=== PATIENT | male | born 1965 | race American Indian/Alaskan Native ===

== ENCOUNTER 2019-04-09 00:07 | Inpatient (IN) | payer SELFPAY ==
[2019-04-09] MEDS ORDERED: levETIRAcetam 1000 MG/NS 0.75% 1,000 MG/100 ML BAG IV ONE (00:25)
--- NOTE | 2019-04-09 00:29 | Emergency Department Report ---
History of Present Illness - General Chief Complaint: Overdose Stated Complaint: SUICIDAL Time Seen by Provider: 04/09/19 00:09 Source: patient, EMS Mode of arrival: Stretcher Limitations: No Limitations - History of Present Illness Initial Comments: 53-year-old male with a past medical history of stage II colon cancer diagnosed 6 months ago, stroke 6 months with residual left sided weakness and left visual deficit, and epilepsy noncompliant on keppra since the hospital with suicidal ideation since being diagnosed with cancer. Patient was found outside of [facility] intoxicated. Patient admitted to drinking 2 beers and about 1.5 cups of antifreeze at 5pm in an attempt to kill himself. He denies daily alcohol intake. Patient states he is suicidal because he has cancer. He has surgical resection of his cancer and has been on IV chemotherapy once a month for the last 3 months and takes a daily oral chemotherapy pill. No physical complaints reported. Patient follows with [facility]. - Related Data Allergies Allergy/AdvReac Type Severity Reaction Status Date / Time No Known Allergies Allergy Unverified 04/09/19 00:36 ED Review of Systems ROS: Stated complaint: SUICIDAL Other details as noted in HPI Comment: All other systems reviewed and negative ED Past Medical Hx - Past Medical History Previous Medical History?: Yes Hx CVA: Yes (summer 2018, left sided weakeness and visual deficit) Hx of Cancer: Yes (Stage II colon cancer diag summer 2018) Hx Seizures: Yes ED Physical Exam - General Limitations: No Limitations - Other Other exam information: General: No limitations, patient is alert in no acute distress Head exam: Atraumatic, normocephalic Eyes exam: Normal appearance ENT: Moist mucous membrane Neck exam: Normal inspection, full range of motion, no meningismus nontender Respiratory exam: Clear to auscultation bilateral, no wheezes, rales, crackles Cardiovascular: Normal rate and rhythm, normal heart sounds Abdomen: Soft, nondistended, and nontender, with normal bowel sounds, no rebound, or guarding Extremity: Full range of motion normal inspection no deformity Back: Normal Inspection, lax left ankle but nontender movement. Neurologic: Alert, oriented x3, speech clear no facial droop 4/5 left-sided weakness and clumsiness of left hand compared to the right. Also 4/5 weakness of the left arm compared to the right. Psychiatric: EtOH on breath, depressed affect Skin: Warm, dry, intact ED Course Vital Signs 04/09/19 04/09/19 04/09/19 00:30 00:41 00:45 Temperature 98.5 F Pulse Rate 86 Respiratory 18 Rate Blood Pressure 123/80 125/80 Blood Pressure 130/75 [Right] O2 Sat by Pulse 94 99 Oximetry 04/09/19 04/09/19 04/09/19 01:00 01:15 01:30 Temperature Pulse Rate 64 109 H 69 Respiratory 11 L 11 L 12 Rate Blood Pressure 117/80 125/82 118/79 Blood Pressure [Right] O2 Sat by Pulse 98 91 96 Oximetry 04/09/19 04/09/19 04/09/19 01:45 02:01 02:15 Temperature Pulse Rate 72 99 H 84 Respiratory 13 15 13 Rate Blood Pressure 124/87 133/91 119/78 Blood Pressure [Right] O2 Sat by Pulse 95 98 100 Oximetry 04/09/19 04/09/19 04/09/19 02:30 02:45 03:00 Temperature Pulse Rate 68 72 66 Respiratory 13 10 L 14 Rate Blood Pressure 115/73 125/77 121/79 Blood Pressure [Right] O2 Sat by Pulse 99 98 98 Oximetry 04/09/19 04/09/19 04/09/19 03:15 03:30 03:45 Temperature Pulse Rate 66 63 75 Respiratory 12 11 L 10 L Rate Blood Pressure 124/81 114/79 116/83 Blood Pressure [Right] O2 Sat by Pulse 100 98 100 Oximetry - Consultations Consultation #1: 04/09/19 00:35 case d/w Poison control. Recommended for Fomepizole 15mg/kg bolus followed by 10 mg/kg IV q 12 hours while ethelyne glycol level pending. -serum osm -ua for crystals -daily thiamine 100mg and pyrdoxine 100mg -r/o co ingestions -ekg 04/09/19 02:39 case rediscussed with Poison control at 2:35am Pt has an 86.7 Osm Gap no calcium oxalate stop Fomepizol when ethylene glycol level is < 20 mg/dl sx with ethylene glycol: somnolence ataxia renal failure hypototonic muscle kussmal's respiration hypocalcemia rec repeat cmp and osmol in 4 hours ED Medical Decision Making - Lab Data Result diagrams: 04/09/19 00:28 04/09/19 00:28 Lab Results 04/09/19 04/09/19 04/09/19 Range/Units 00:28 00:28 00:28 WBC 5.1 (4.5-11.0) K/mm3 RBC 4.85 (3.65-5.03) M/mm3 Hgb 11.3 L (11.8-15.2) gm/dl Hct 34.9 L (35.5-45.6) % MCV 72 L (84-94) fl MCH 23 L (28-32) pg MCHC 32 (32-34) % RDW 25.0 H (13.2-15.2) % Plt Count 448 H (140-440) K/mm3 Lymph % (Auto) 16.2 (13.4-35.0) % Kemper % (Auto) 1.2 (0.0-7.3) % Eos % (Auto) 0.1 (0.0-4.3) % Baso % (Auto) 0.6 (0.0-1.8) % Lymph # 0.8 L (1.2-5.4) K/mm3 Kemper # 0.1 (0.0-0.8) K/mm3 Eos # 0.0 (0.0-0.4) K/mm3 Baso # 0.0 (0.0-0.1) K/mm3 Seg Neutrophils % 81.9 H (40.0-70.0) % Seg Neutrophils # 4.2 (1.8-7.7) K/mm3 Sodium 147 H (137-145) mmol/L Potassium 5.0 (3.6-5.0) mmol/L Chloride 106.6 (98-107) mmol/L Carbon Dioxide 21 L (22-30) mmol/L Anion Gap 24 mmol/L BUN 8 L (9-20) mg/dL Creatinine 0.8 (0.8-1.5) mg/dL Estimated GFR > 60 ml/min BUN/Creatinine Ratio 10 % Glucose 113 H (75-100) mg/dL Osmolality 425 Mosm/kg Calcium 9.3 (8.4-10.2) mg/dL Magnesium (1.7-2.3) mg/dL Total Bilirubin 0.30 (0.1-1.2) mg/dL AST 18 (5-40) units/L ALT 8 (7-56) units/L Alkaline Phosphatase 52 (35-129) units/L Total Protein 7.9 (6.3-8.2) g/dL Albumin 4.5 (3.9-5) g/dL Albumin/Globulin Ratio 1.3 % Urine Color (Yellow) Urine Turbidity (Clear) Urine pH (5.0-7.0) Ur Specific [place] (1.003-1.030) Urine Protein (Negative) mg/dL Urine Glucose (UA) (Negative) mg/dL Urine Ketones (Negative) mg/dL Urine Blood (Negative) Urine Nitrite (Negative) Urine Bilirubin (Negative) Urine Urobilinogen (<2.0) mg/dL Ur Leukocyte Esterase (Negative) Urine WBC (Auto) (0.0-6.0) /HPF Urine RBC (Auto) (0.0-6.0) /HPF U Epithel Cells (Auto) (0-13.0) /HPF Salicylates (2.8-20.0) mg/dL Urine Opiates Screen Urine Methadone Screen Acetaminophen (10.0-30.0) ug/mL Ur Barbiturates Screen Ur Phencyclidine Scrn Ur Amphetamines Screen U Benzodiazepines Scrn Urine Cocaine Screen U Marijuana (THC) Screen Drugs of Abuse Note Plasma/Serum Alcohol (0-0.07) % 04/09/19 04/09/19 04/09/19 Range/Units 00:28 00:28 00:28 WBC (4.5-11.0) K/mm3 RBC (3.65-5.03) M/mm3 Hgb (11.8-15.2) gm/dl Hct (35.5-45.6) % MCV (84-94) fl MCH (28-32) pg MCHC (32-34) % RDW (13.2-15.2) % Plt Count (140-440) K/mm3 Lymph % (Auto) (13.4-35.0) % Kemper % (Auto) (0.0-7.3) % Eos % (Auto) (0.0-4.3) % Baso % (Auto) (0.0-1.8) % Lymph # (1.2-5.4) K/mm3 Kemper # (0.0-0.8) K/mm3 Eos # (0.0-0.4) K/mm3 Baso # (0.0-0.1) K/mm3 Seg Neutrophils % (40.0-70.0) % Seg Neutrophils # (1.8-7.7) K/mm3 Sodium (137-145) mmol/L Potassium (3.6-5.0) mmol/L Chloride (98-107) mmol/L Carbon Dioxide (22-30) mmol/L Anion Gap mmol/L BUN (9-20) mg/dL Creatinine (0.8-1.5) mg/dL Estimated GFR ml/min BUN/Creatinine Ratio % Glucose (75-100) mg/dL Osmolality Mosm/kg Calcium (8.4-10.2) mg/dL Magnesium 2.50 H (1.7-2.3) mg/dL Total Bilirubin (0.1-1.2) mg/dL AST (5-40) units/L ALT (7-56) units/L Alkaline Phosphatase (35-129) units/L Total Protein (6.3-8.2) g/dL Albumin (3.9-5) g/dL Albumin/Globulin Ratio % Urine Color (Yellow) Urine Turbidity (Clear) Urine pH (5.0-7.0) Ur Specific Ul[place] (1.003-1.030) Urine Protein (Negative) mg/dL Urine Glucose (UA) (Negative) mg/dL Urine Ketones (Negative) mg/dL Urine Blood (Negative) Urine Nitrite (Negative) Urine Bilirubin (Negative) Urine Urobilinogen (<2.0) mg/dL Ur Leukocyte Esterase (Negative) Urine WBC (Auto) (0.0-6.0) /HPF Urine RBC (Auto) (0.0-6.0) /HPF U Epithel Cells (Auto) (0-13.0) /HPF Salicylates 0.4 L (2.8-20.0) mg/dL Urine Opiates Screen Urine Methadone Screen Acetaminophen (10.0-30.0) ug/mL Ur Barbiturates Screen Ur Phencyclidine Scrn Ur Amphetamines Screen U Benzodiazepines Scrn Urine Cocaine Screen U Marijuana (THC) Screen Drugs of Abuse Note Plasma/Serum Alcohol 0.13 H (0-0.07) % 04/09/19 04/09/19 04/09/19 Range/Units 00:28 00:30 00:30 WBC (4.5-11.0) K/mm3 RBC (3.65-5.03) M/mm3 Hgb (11.8-15.2) gm/dl Hct (35.5-45.6) % MCV (84-94) fl MCH (28-32) pg MCHC (32-34) % RDW (13.2-15.2) % Plt Count (140-440) K/mm3 Lymph % (Auto) (13.4-35.0) % Kemper % (Auto) (0.0-7.3) % Eos % (Auto) (0.0-4.3) % Baso % (Auto) (0.0-1.8) % Lymph # (1.2-5.4) K/mm3 Kemper # (0.0-0.8) K/mm3 Eos # (0.0-0.4) K/mm3 Baso # (0.0-0.1) K/mm3 Seg Neutrophils % (40.0-70.0) % Seg Neutrophils # (1.8-7.7) K/mm3 Sodium (137-145) mmol/L Potassium (3.6-5.0) mmol/L Chloride (98-107) mmol/L Carbon Dioxide (22-30) mmol/L Anion Gap mmol/L BUN (9-20) mg/dL Creatinine (0.8-1.5) mg/dL Estimated GFR ml/min BUN/Creatinine Ratio % Glucose (75-100) mg/dL Osmolality Mosm/kg Calcium (8.4-10.2) mg/dL Magnesium (1.7-2.3) mg/dL Total Bilirubin (0.1-1.2) mg/dL AST (5-40) units/L ALT (7-56) units/L Alkaline Phosphatase (35-129) units/L Total Protein (6.3-8.2) g/dL Albumin (3.9-5) g/dL Albumin/Globulin Ratio % Urine Color Colorless (Yellow) Urine Turbidity Clear (Clear) Urine pH 5.0 (5.0-7.0) Ur Specific [place] 1.010 (1.003-1.030) Urine Protein <15 mg/dl (Negative) mg/dL Urine Glucose (UA) Neg (Negative) mg/dL Urine Ketones Tr (Negative) mg/dL Urine Blood Neg (Negative) Urine Nitrite Neg (Negative) Urine Bilirubin Neg (Negative) Urine Urobilinogen < 2.0 (<2.0) mg/dL Ur Leukocyte Esterase Neg (Negative) Urine WBC (Auto) < 1.0 (0.0-6.0) /HPF Urine RBC (Auto) 2.0 (0.0-6.0) /HPF U Epithel Cells (Auto) < 1.0 (0-13.0) /HPF Salicylates (2.8-20.0) mg/dL Urine Opiates Screen Presumptive negative Urine Methadone Screen Presumptive negative Acetaminophen < 5.0 L (10.0-30.0) ug/mL Ur Barbiturates Screen Presumptive negative Ur Phencyclidine Scrn Presumptive negative Ur Amphetamines Screen Presumptive negative U Benzodiazepines Scrn Presumptive negative Urine Cocaine Screen Presumptive negative U Marijuana (THC) Screen Presumptive negative Drugs of Abuse Note Disclamer Plasma/Serum Alcohol (0-0.07) % - EKG Data -: EKG Interpreted by Me EKG shows normal: sinus rhythm, axis (qrsd ), intervals (qtc 462), ST-T waves (no stemi) Rate: normal (89) - Medical Decision Making + suicide attempt drank etoh and antifreeze + osm gap, requiring Fomepizole pt requires admission for treatment, 1013 signed - Differential Diagnosis overdose, SI Critical Care Time: No Critical care attestation.: If time is entered above; I have spent that time in minutes in the direct care of this critically ill patient, excluding procedure time. ED Disposition Clinical Impression: Suicide attempt, Alcohol intoxication, Poisoning, antifreeze, Colon cancer, History of CVA with residual deficit Disposition: DC-09 OP ADMIT IP TO THIS HOSP Is pt being admited?: Yes Condition: Stable Time of Disposition: 02:54 (Dr Fernandez/hosp)
[2019-04-09] MEDS ORDERED: PYRIDOXINE 50 MG TAB PO ONE (00:44)
[2019-04-09 00:49] LABS: Bilirubin,Urine NEG (Negative); Blood,Urine NEG (Negative); Color,Urine Colorless (Yellow); Protein,Urine <15 mg/dL mg/dL (Negative); Urobilinogen,Urine < 2.0 mg/dL (<2.0)
[2019-04-09 00:53] LABS: Basophils % (Auto) 0.6 % (0.0-1.8); Eosinophils % (Auto) 0.1 % (0.0-4.3); Hematocrit 34.9 % (35.5-45.6); Hemoglobin 11.3 gm/dl (11.8-15.2); Lymphocytes # (Auto) 0.8 K/mm3 (1.2-5.4); Lymphocytes % (Auto) 16.2 % (13.4-35.0); Mean Corpuscular HGB Conc 32 % (32-34); Mean Corpuscular Volume 72 fl (84-94); Monocytes # (Auto) 0.1 K/mm3 (0.0-0.8); Monocytes % (Auto) 1.2 % (0.0-7.3); Platelet Count 448 K/mm3 (140-440); Red Blood Count 4.85 M/mm3 (3.65-5.03)
[2019-04-09] MEDS ORDERED: THIAMINE 100 MG, FOLIC ACID 1 MG, MULTIPLE VITAMIN INJ, ADULT 10 ML in SODIUM CHLORIDE ... IV ONE (01:00)
[2019-04-09 01:09] LABS: Alanine Aminotransferase 8 units/L (7-56); Albumin 4.5 g/dL (3.9-5); BUN/Creatinine Ratio 10; Blood Urea Nitrogen 8 mg/dL (9-20); Calcium 9.3 mg/dL (8.4-10.2); Hemolysis Index 4
[2019-04-09 01:10] LABS: WBC,Urine < 1.0 /HPF (0.0-6.0)
[2019-04-09 01:38] LABS: Amphetamine Screen,Urine PRESUMPTIVE NEGATIVE; Benzodiazepines Screen,Urine PRESUMPTIVE NEGATIVE; Cannabinoid Screen,Urine PRESUMPTIVE NEGATIVE; Cocaine Screen,Urine PRESUMPTIVE NEGATIVE; Methadone Screen,Urine PRESUMPTIVE NEGATIVE; Opiate Screen,Urine PRESUMPTIVE NEGATIVE
[2019-04-09] MEDS: FOMEPIZOLEV IV ONE ×2 (01:42→05:29)
[2019-04-09] MEDS: SODIUM CHLORIDE 0.9% IV ONE ×2 (01:42→05:29)
[2019-04-09] MEDS ORDERED: MAGNESIUM HYDROXIDE (MOM) ORAL LIQD UDC PO PRN (03:04)
[2019-04-09] MEDS ORDERED: ONDANSETRON 4 MG/2 ML INJ IV PRN (03:04)
--- NOTE | 2019-04-09 03:48 | History and Physical Report ---
History of Present Illness Date of examination: 04/09/19 Date of admission: 04/09/2019 Chief complaint: Drug overdose History of present illness: 53-year-old -[place] male with known history of stage II colon cancer on chemotherapy presenting to the emergency room today with suicide attempts. Patient was said to have taken alcohol and antifreeze in an attempt to commit suicide. He is said to have been having suicidal ideation since he was diagnosed with colon cancer. He took about 2 beers and 1-1/2 cups of antifreeze. He also has known history of CVA with left-sided deficit, seizure disorder on keppra but has been noncompliant since diagnosis of colon ca. He has been on chemotherapy pills once a month for the past 3 months for his colon cancer. Upon evaluation in the emergency room, Poison control was contacted and recommendations were given for patient's management-Recommended for Fomepizole 15mg/kg bolus followed by 10 mg/kg IV q 12 hours while ethelyne glycol level pending. serum osmolality , urinalysis for crystals Repeat chemistry is to be done in 4 hours. Patient is also to receive daily thiamine and pyridoxine. Past History Past Medical History: stroke, other (History of colon ca.) Past Surgical History: bowel surgery Social history: no significant social history Family history: no significant family history Medications and Allergies Allergies Allergy/AdvReac Type Severity Reaction Status Date / Time No Known Allergies Allergy Unverified 04/09/19 00:36 Active Meds: Active Medications Thiamine HCl 100 mg/ Folic Acid 1 mg/ Multivitamins/Minerals 10 ml/ Sodium Chloride 1,011.2 mls @ 250 mls/hr IV ONCE ONE Stop: 04/09/19 05:02 Last Admin: 04/09/19 01:04 Dose: 250 mls/hr Documented by: Fomepizole 730 mg/ Sodium (Chloride) 100.73 mls @ 200 mls/hr IV Q12HR MARILEE Stop: 04/10/19 22:31 Sodium Chloride (Nacl 0.9% 1000 Ml) 1,000 mls @ 75 mls/hr IV DIRECT MARILEE Magnesium Hydroxide (Milk Of Magnesia) 30 ml PO Q4H PRN PRN Reason: Constipation Ondansetron HCl (Zofran) 4 mg IV Q8H PRN PRN Reason: Nausea And Vomiting Pyridoxine HCl (Vitamin B-6) 100 mg PO QDAY MARILEE Sodium Chloride (Sodium Chloride Flush Syringe 10 Ml) 10 ml IV BID MARILEE Sodium Chloride (Sodium Chloride Flush Syringe 10 Ml) 10 ml IV PRN PRN PRN Reason: LINE FLUSH Thiamine HCl (Vitamin B-1) 100 mg PO DAILY [facility] Review of Systems Psychiatric: suicidal ideation, depression Exam - Constitutional Vitals: Temp Pulse Resp BP Pulse Ox 98.5 F 64 11 L 117/80 98 04/09/19 00:30 04/09/19 01:00 04/09/19 01:00 04/09/19 01:00 04/09/19 01:00 General appearance: Present: no acute distress, well-nourished - EENT Eyes: Present: PERRL, EOM intact ENT: hearing intact, clear oral mucosa, dentition normal - Neck Neck: Present: supple, normal ROM - Respiratory Respiratory effort: normal Respiratory: bilateral: CTA - Cardiovascular Rhythm: regular Heart Sounds: Present: S1 & S2 - Extremities Extremities: no ischemia, pulses intact, pulses symmetrical, No edema, Full ROM Peripheral Pulses: within normal limits - Abdominal General gastrointestinal: Present: soft, non-tender, non-distended - Integumentary Integumentary: Present: clear, warm, dry - Musculoskeletal Musculoskeletal: strength equal bilaterally - Psychiatric Psychiatric: appropriate mood/affect, intact judgment & insight, cooperative - Neurologic Neurologic: CNII-XII intact, moves all extremities Results - Labs CBC & Chem 7: 04/09/19 00:28 04/09/19 00:28 Labs: Abnormal lab results 04/09/19 04/09/19 04/09/19 Range/Units 00:28 00:28 00:28 Hgb 11.3 L (11.8-15.2) gm/dl Hct 34.9 L (35.5-45.6) % MCV 72 L (84-94) fl MCH 23 L (28-32) pg RDW 25.0 H (13.2-15.2) % Plt Count 448 H (140-440) K/mm3 Lymph # 0.8 L (1.2-5.4) K/mm3 Seg Neutrophils % 81.9 H (40.0-70.0) % Sodium 147 H (137-145) mmol/L Carbon Dioxide 21 L (22-30) mmol/L BUN 8 L (9-20) mg/dL Glucose 113 H (75-100) mg/dL Magnesium (1.7-2.3) mg/dL Salicylates (2.8-20.0) mg/dL Acetaminophen (10.0-30.0) ug/mL Plasma/Serum Alcohol 0.13 H (0-0.07) % 04/09/19 04/09/19 04/09/19 Range/Units 00:28 00:28 00:28 Hgb (11.8-15.2) gm/dl Hct (35.5-45.6) % MCV (84-94) fl MCH (28-32) pg RDW (13.2-15.2) % Plt Count (140-440) K/mm3 Lymph # (1.2-5.4) K/mm3 Seg Neutrophils % (40.0-70.0) % Sodium (137-145) mmol/L Carbon Dioxide (22-30) mmol/L BUN (9-20) mg/dL Glucose (75-100) mg/dL Magnesium 2.50 H (1.7-2.3) mg/dL Salicylates 0.4 L (2.8-20.0) mg/dL Acetaminophen < 5.0 L (10.0-30.0) ug/mL Plasma/Serum Alcohol (0-0.07) % Assessment and Plan - Patient Problems (1) Suicide attempt Current Visit: Yes Status: Acute Plan to address problem: Patient will be closely monitored. Will place on suicide precautions. (2) Alcohol intoxication Current Visit: Yes Status: Acute Plan to address problem: Possibly in an attempt to commit suicide. Patient was said to have ingested alcohol and antifreeze. (3) Colon cancer Current Visit: Yes Status: Acute Plan to address problem: Patient has been on chemotherapy. He has also had abdominal surgery. He follows up at [facility]. (4) History of CVA with residual deficit Current Visit: Yes Status: Acute Plan to address problem: Stable. (5) History of seizure disorder Current Visit: Yes Status: Acute Plan to address problem: We will continue routine home medications. We will also place on seizure precautions. (6) DVT prophylaxis Current Visit: Yes Status: Acute (7) Full code status Current Visit: Yes Status: Acute
--- NOTE | 2019-04-09 05:42 | XRay Report ---
EXAMINATION: Left ankle radiograph, 3 views, 04/09/2019 CLINICAL INFORMATION: Left ankle pain COMPARISON: None. FINDINGS: There is widening of the tibiotalar joint with slight anterior displacement of the distal t ibia suggestive of tibiotalar dislocation. There is a minimally displaced oblique fracture of the dis sahara tibial metaphysis. Generalized soft tissue swelling is noted. Signer Name: Sharita Rodriguez MD Signed: 04/09/2019 5:37 AM Workstation Name: [id number]
[2019-04-09] MEDS: HEPARIN 5,000 UNIT/1 ML VIAL SUB-Q SCH ×3 (06:53→22:21)
[2019-04-09 08:05] LABS: Alanine Aminotransferase 10 units/L (7-56); Albumin 4.6 g/dL (3.9-5); BUN/Creatinine Ratio 8; Blood Urea Nitrogen 7 mg/dL (9-20); Calcium 9.5 mg/dL (8.4-10.2); Hemolysis Index 0
[2019-04-09] MEDS: SODIUM CHLORIDE 0.9% IV SCH (09:44)
[2019-04-09] MEDS: FOMEPIZOLEV IV SCH (09:44)
[2019-04-09] MEDS ORDERED: THIAMINE 100 MG TAB ONE (09:52)
[2019-04-09] MEDS: THIAMINE 100 MG TAB PO SCH (09:53)
[2019-04-09] MEDS: PYRIDOXINE 50 MG TAB PO SCH (09:54)
[2019-04-09] MEDS ORDERED: FOMEPIZOLE 1500 MG/1.5 ML IV ONE (10:00)
[2019-04-09] MEDS ORDERED: SODIUM CHLORIDE 0.9% 100 ML IVPB ONE (10:00)
[2019-04-09] MEDS: SODIUM CHLORIDE 0.9% 1000 ML 1,000 ML IV SCH (10:23)
[2019-04-09] MEDS ORDERED: SODIUM CHLORIDE 0.9% 1000 ML 1,000 ML ONE ×2 (10:27)
[2019-04-09] MEDS ORDERED: HEPARIN 5,000 UNIT/1 ML VIAL ONE ×3 (16:31→22:16)
[2019-04-09] MEDS ORDERED: oxyCODONE /ACETAMINOPHEN 5-325MG TAB ONE (17:35)
[2019-04-09] MEDS: oxyCODONE /ACETAMINOPHEN 5-325MG TAB PO PRN (17:55)
[2019-04-09] MEDS ORDERED: MORPHINE 2 MG/1 ML INJ IV ONE (22:09)
[2019-04-09] MEDS ORDERED: MORPHINE 2 MG/1 ML INJ ONE (22:16)
[2019-04-10] MEDS: oxyCODONE /ACETAMINOPHEN 5-325MG TAB PO PRN ×3 (01:11→20:22)
[2019-04-10] MEDS: SODIUM CHLORIDE 0.9% IV SCH ×3 (01:15→22:31)
[2019-04-10] MEDS: FOMEPIZOLEV IV SCH ×3 (01:15→22:31)
[2019-04-10] MEDS: SODIUM CHLORIDE 0.9% 1000 ML 1,000 ML IV SCH ×2 (02:40→17:13)
[2019-04-10 04:12] LABS: Basophils # (Auto) 0.1 K/mm3 (0.0-0.1); Basophils % (Auto) 0.7 % (0.0-1.8); Eosinophils # (Auto) 0.2 K/mm3 (0.0-0.4); Eosinophils % (Auto) 1.9 % (0.0-4.3); Hematocrit 27.9 % (35.5-45.6); Hemoglobin 9.2 gm/dl (11.8-15.2); Lymphocytes # (Auto) 1.6 K/mm3 (1.2-5.4); Lymphocytes % (Auto) 19.2 % (13.4-35.0); Mean Corpuscular HGB Conc 33 % (32-34); Mean Corpuscular Volume 72 fl (84-94); Monocytes # (Auto) 0.7 K/mm3 (0.0-0.8); Monocytes % (Auto) 7.9 % (0.0-7.3); Platelet Count 362 K/mm3 (140-440); Red Blood Count 3.88 M/mm3 (3.65-5.03)
[2019-04-10 04:16] LABS: INR 1.08 (0.87-1.13); Partial Thromboplastin Time 27.9 Sec. (24.2-36.6)
[2019-04-10 04:21] LABS: BUN/Creatinine Ratio 13; Blood Urea Nitrogen 12 mg/dL (9-20); Calcium 8.4 mg/dL (8.4-10.2); Hemolysis Index 1
[2019-04-10] MEDS: HEPARIN 5,000 UNIT/1 ML VIAL SUB-Q SCH ×3 (05:31→21:16)
[2019-04-10] MEDS: THIAMINE 100 MG TAB PO SCH (10:19)
[2019-04-10] MEDS: PYRIDOXINE 50 MG TAB PO SCH (10:19)
--- NOTE | 2019-04-10 17:37 | Progress Note ---
Assessment and Plan - Patient Problems (1) Poisoning, antifreeze Current Visit: Yes Status: Acute Qualifiers: Injury intent: intentional self-harm Plan to address problem: Can continue IV Fomipazole, vitamin B1, vitamin B6 as per poison control recommendations (2) Alcohol intoxication Current Visit: Yes Status: Acute Qualifiers: Complication of substance-induced condition: uncomplicated Qualified Code(s): F10.920 - Alcohol use, unspecified with intoxication, uncomplicated Plan to address problem: Alcohol cessation, thiamine, folic acid, multivitamin. Outpatient AA follow-up. Supportive care, behavior change counseling +15 minutes (3) Colon cancer Current Visit: Yes Status: Acute Qualifiers: Colon location: unspecified part of colon Qualified Code(s): C18.9 - Malignant neoplasm of colon, unspecified Plan to address problem: Supportive care, outpatient oncology follow-up, continue current therapy. (4) History of CVA with residual deficit Current Visit: Yes Status: Acute Plan to address problem: Supportive care (5) Suicide attempt Current Visit: Yes Status: Acute Plan to address problem: Psychiatry consulted consent to new current care, [address] (6) DVT prophylaxis Current Visit: Yes Status: Acute Plan to address problem: SCD to bilateral lower extremities while in bed, prophylactic heparin. History Interval history: 53-year-old male hospital day 2 with alcohol intoxication, suicide attempt via ingestion of ethylene glycol, colon cancer, left ankle fracture. Patient is more alert today. Patient resting comfortably in bed. Patient denies fever, chills, chest pain, palpitations, nausea vomiting diarrhea, productive cough, skin rash, recent ill contacts. No reported nursing events overnight. Patient complains of left ankle pain. Orthopedic surgery service consulted. Hospitalist Physical - Constitutional Vitals: Temp Pulse Resp BP Pulse Ox 98.5 F 72 12 127/83 97 04/10/19 08:00 04/10/19 09:21 04/10/19 09:21 04/10/19 09:21 04/10/19 09:21 General appearance: Present: no acute distress, well-nourished - EENT Eyes: Present: PERRL ENT: hearing intact - Neck Neck: Present: supple - Respiratory Respiratory: bilateral: CTA - Cardiovascular Rhythm: regular Heart Sounds: Present: S1 & S2 - Extremities Extremities: no ischemia Extremity abnormal: edema Peripheral Pulses: within normal limits - Abdominal General gastrointestinal: soft, non-tender, non-distended - Integumentary Integumentary: Present: clear, warm, dry - Psychiatric Psychiatric: appropriate mood/affect, cooperative - Neurologic Neurologic: CNII-XII intact Results - Labs CBC & Chem 7: 04/10/19 03:36 04/10/19 03:36 Labs: Laboratory Last Values WBC 8.3 K/mm3 (4.5-11.0) 04/10/19 03:36 RBC 3.88 M/mm3 (3.65-5.03) 04/10/19 03:36 Hgb 9.2 gm/dl (11.8-15.2) L 04/10/19 03:36 Hct 27.9 % (35.5-45.6) L D 04/10/19 03:36 MCV 72 fl (84-94) L 04/10/19 03:36 MCH 24 pg (28-32) L 04/10/19 03:36 MCHC 33 % (32-34) 04/10/19 03:36 RDW 24.0 % (13.2-15.2) H 04/10/19 03:36 Plt Count 362 K/mm3 (140-440) 04/10/19 03:36 Lymph % (Auto) 19.2 % (13.4-35.0) 04/10/19 03:36 [place] % (Auto) 7.9 % (0.0-7.3) H 04/10/19 03:36 Eos % (Auto) 1.9 % (0.0-4.3) 04/10/19 03:36 Baso % (Auto) 0.7 % (0.0-1.8) 04/10/19 03:36 Lymph # 1.6 K/mm3 (1.2-5.4) 04/10/19 03:36 [place] # 0.7 K/mm3 (0.0-0.8) 04/10/19 03:36 Eos # 0.2 K/mm3 (0.0-0.4) 04/10/19 03:36 Baso # 0.1 K/mm3 (0.0-0.1) 04/10/19 03:36 Seg Neutrophils % 70.3 % (40.0-70.0) H 04/10/19 03:36 Seg Neutrophils # 5.8 K/mm3 (1.8-7.7) 04/10/19 03:36 PT 14.1 Sec. (12.2-14.9) 04/10/19 03:36 INR 1.08 (0.87-1.13) 04/10/19 03:36 APTT 27.9 Sec. (24.2-36.6) 04/10/19 03:36 Sodium 145 mmol/L (137-145) 04/10/19 03:36 Potassium 3.7 mmol/L (3.6-5.0) 04/10/19 03:36 Chloride 110.0 mmol/L (98-107) H 04/10/19 03:36 Carbon Dioxide 21 mmol/L (22-30) L 04/10/19 03:36 Anion Gap 18 mmol/L 04/10/19 03:36 BUN 12 mg/dL (9-20) 04/10/19 03:36 Creatinine 0.9 mg/dL (0.8-1.5) 04/10/19 03:36 Estimated GFR > 60 ml/min 04/10/19 03:36 BUN/Creatinine Ratio 13 % 04/10/19 03:36 Glucose 91 mg/dL (75-100) 04/10/19 03:36 Osmolality 389 Mosm/kg 04/09/19 07:09 Calcium 8.4 mg/dL (8.4-10.2) 04/10/19 03:36 Magnesium 2.50 mg/dL (1.7-2.3) H 04/09/19 00:28 Total Bilirubin 0.30 mg/dL (0.1-1.2) 04/09/19 07:09 AST 17 units/L (5-40) 04/09/19 07:09 ALT 10 units/L (7-56) 04/09/19 07:09 Alkaline Phosphatase 53 units/L (35-129) 04/09/19 07:09 Total Protein 8.4 g/dL (6.3-8.2) H 04/09/19 07:09 Albumin 4.6 g/dL (3.9-5) 04/09/19 07:09 Albumin/Globulin Ratio 1.2 % 04/09/19 07:09 Urine Color Colorless (Yellow) 04/09/19 00:30 Urine Turbidity Clear (Clear) 04/09/19 00:30 Urine pH 5.0 (5.0-7.0) 04/09/19 00:30 Ur Specific [place] 1.010 (1.003-1.030) 04/09/19 00:30 Urine Protein <15 mg/dl mg/dL (Negative) 04/09/19 00:30 Urine Glucose (UA) Neg mg/dL (Negative) 04/09/19 00:30 Urine Ketones Tr mg/dL (Negative) 04/09/19 00:30 Urine Blood Neg (Negative) 04/09/19 00:30 Urine Nitrite Neg (Negative) 04/09/19 00:30 Urine Bilirubin Neg (Negative) 04/09/19 00:30 Urine Urobilinogen < 2.0 mg/dL (<2.0) 04/09/19 00:30 Ur Leukocyte Esterase Neg (Negative) 04/09/19 00:30 Urine WBC (Auto) < 1.0 /HPF (0.0-6.0) 04/09/19 00:30 Urine RBC (Auto) 2.0 /HPF (0.0-6.0) 04/09/19 00:30 U Epithel Cells (Auto) < 1.0 /HPF (0-13.0) 04/09/19 00:30 Salicylates 0.4 mg/dL (2.8-20.0) L 04/09/19 00:28 Urine Opiates Screen Presumptive negative 04/09/19 00:30 Urine Methadone Screen Presumptive negative 04/09/19 00:30 Acetaminophen < 5.0 ug/mL (10.0-30.0) L 04/09/19 00:28 Ur Barbiturates Screen Presumptive negative 04/09/19 00:30 Ur Phencyclidine Scrn Presumptive negative 04/09/19 00:30 Ur Amphetamines Screen Presumptive negative 04/09/19 00:30 U Benzodiazepines Scrn Presumptive negative 04/09/19 00:30 Urine Cocaine Screen Presumptive negative 04/09/19 00:30 U Marijuana (THC) Screen Presumptive negative 04/09/19 00:30 Drugs of Abuse Note Disclamer 04/09/19 00:30 Plasma/Serum Alcohol 0.13 % (0-0.07) H 04/09/19 00:28 Active Medications - Current Medications Current Medications: Generic Name Dose Route Start Last Admin Trade Name Freq PRN Reason Stop Dose Admin Heparin Sodium (Porcine) 5,000 unit 04/09/19 06:00 04/10/19 15:12 Heparin SUB-Q 5,000 unit Q8HR MARILEE Administration Fomepizole 730 mg/ Sodium 100.73 mls @ 200 mls/hr 04/09/19 10:00 04/10/19 12:55 Chloride IV 04/10/19 22:31 200 mls/hr Q12HR MARILEE Administration Sodium Chloride 1,000 mls @ 75 mls/hr 04/09/19 03:15 04/10/19 17:13 Nacl 0.9% 1000 Ml IV 75 mls/hr DIRECT MARILEE Administration Magnesium Hydroxide 30 ml 04/09/19 03:04 Milk Of Magnesia PO Q4H PRN Constipation Ondansetron HCl 4 mg 04/09/19 03:04 Zofran IV Q8H PRN Nausea And Vomiting Oxycodone/Acetaminophen 1 tab 04/09/19 17:30 04/10/19 08:50 Percocet 5/325 PO 1 tab Q6H PRN Administration Pain, Moderate (4-6) Pyridoxine HCl 100 mg 04/09/19 10:00 04/10/19 10:19 Vitamin B-6 PO 100 mg QDAY MARILEE Administration Sodium Chloride 10 ml 04/09/19 10:00 04/10/19 10:19 Sodium Chloride Flush Syringe 10 Ml IV 10 ml BID MARILEE Administration Sodium Chloride 10 ml 04/09/19 03:04 Sodium Chloride Flush Syringe 10 Ml IV PRN PRN LINE FLUSH Thiamine HCl 100 mg 04/09/19 10:00 04/10/19 10:19 Vitamin B-1 PO 100 mg DAILY MARILEE Administration Nutrition/Malnutrition Assess - Dietary Evaluation Nutrition/Malnutrition Findings: Nutrition Notes Start: 04/10/19 11:19 Freq: Status: Active Protocol: Document 04/10/19 11:19 RS (Rec: 04/10/19 11:37 RS [id number]) Co-Sign 04/10/19 11:19 LP Nutrition Notes Need for Assessment generated from: kennel aide Initial or Follow up Assessment Other Pertinent Diagnosis Stage II colon cancer, hx of seizures, hx of CVA, suicide attempt Current Diet Cardiac diet Labs/Tests reviewed Pertinent Medications reviewed Height 5 ft 8 in Weight 72.57 kg [place] Body Weight (kg) 70.00 BMI 24.3 Intake Prior to Admission Good Weight change and time frame 30lb wt loss in 6 months Weight Status Appropriate Subjective/Other Information RN consult for MST, skin risk assessment. Pt appeared to be weak and had low energy levels . Pt reports eating 100% of breakfast meal tray. Pt reports when he was recieving chemotherapy that his appetite was nonexistent and caused him to lose 30lb in 6 months. Pt states his appetite has notably improved as of recent and is able to tolerate most meals. Pt has Ishan score of 15 but no noted wounds or pressure ulcers present. No noted muscle wasting or body fat depletion. Burn Absent Trauma Absent GI Symptoms None Food Allergy No Current % PO Good (75-100%) Minimum of two criteria No Interpretation of Weight Loss (severe) >10% in 6 months #1 Nutrition Diagnosis Inadequate oral intake Etiology dx of stage II colon cancer, s /p radiation As Evidenced by Signs and Symptoms pt losing 30 lb in past 6 months Is patient on ventilator? No Is Patient Ambulatory and/or Out of Bed No REE-([place]-St. Jeor-confined to bed) 2872.548 Calculation Used for Recommendations [place]-St Jeor Additional Notes PRO needs (0.8-1g/kg): 58-73g/ day Fluid needs: 1mL/kcal Nutrition Intervention Change Diet Order: Continue diet Goal #1 Pt will meet 75% of kcal/PRO needs via PO intake Anticipated Discharge Needs: Cardiac diet Follow-Up By: 04/13/19 Additional Comments F/U for stable PO intakes
[2019-04-11] MEDS: HEPARIN 5,000 UNIT/1 ML VIAL SUB-Q SCH ×3 (05:14→21:02)
[2019-04-11] MEDS: SODIUM CHLORIDE 0.9% 1000 ML 1,000 ML IV SCH ×2 (05:37→20:58)
[2019-04-11] MEDS: oxyCODONE /ACETAMINOPHEN 5-325MG TAB PO PRN (08:31)
[2019-04-11] MEDS ORDERED: FAMOTIDINE 20 MG/2 ML INJ IV ONE (09:35)
[2019-04-11] MEDS: PYRIDOXINE 50 MG TAB PO SCH (10:09)
[2019-04-11] MEDS: THIAMINE 100 MG TAB PO SCH (10:09)
[2019-04-11] MEDS ORDERED: HYDROmorphone 1 MG/1 ML INJ IV PRN (10:28)
[2019-04-11] MEDS ORDERED: ONDANSETRON 4 MG/2 ML INJ IV PRN ×2 (10:28→12:31)
[2019-04-11 10:41] LABS: BUN/Creatinine Ratio 9; Blood Urea Nitrogen 7 mg/dL (9-20); Calcium 8.6 mg/dL (8.4-10.2); Hemolysis Index 7
[2019-04-11] MEDS ORDERED: PROPOFOL 200 MG/20 ML VIAL IV ONE (11:08)
[2019-04-11] MEDS ORDERED: HYDROmorphone 1 MG/1 ML INJ ONE (11:08)
--- NOTE | 2019-04-11 11:34 | Consultation ---
History of Present Illness - [facility] Consult date: 04/10/19 Consult reason: fracture History of present illness: 53 y/o male with c/o left ankle pain and swelling, does not remember what happenned, he apparently attempted suicide with ETOH & antifreeze prior to admission... Past History Past Medical History: stroke, other (History of colon ca.) Past Surgical History: bowel surgery Social history: no significant social history Family history: no significant family history Medications and Allergies Allergies Allergy/AdvReac Type Severity Reaction Status Date / Time No Known Allergies Allergy Unverified 04/09/19 00:36 Active Meds: Active Medications Heparin Sodium (Porcine) (Heparin) 5,000 unit SUB-Q Q8HR [facility] Last Admin: 04/11/19 05:14 Dose: 5,000 unit Documented by: Hydromorphone HCl (Dilaudid) 0.5 mg IV Q10MIN PRN PRN Reason: Pain , Severe (7-10) Sodium Chloride (Nacl 0.9% 1000 Ml) 1,000 mls @ 75 mls/hr IV DIRECT [facility] Last Admin: 04/11/19 05:37 Dose: 75 mls/hr Documented by: Magnesium Hydroxide (Milk Of Magnesia) 30 ml PO Q4H PRN PRN Reason: Constipation Ondansetron HCl (Zofran) 4 mg IV Q8H PRN PRN Reason: Nausea And Vomiting Ondansetron HCl (Zofran) 4 mg IV ONCE PRN PRN Reason: Nausea And Vomiting Oxycodone/Acetaminophen (Percocet 5/325) 1 tab PO Q6H PRN PRN Reason: Pain, Moderate (4-6) Last Admin: 04/11/19 08:31 Dose: 1 tab Documented by: Pyridoxine HCl (Vitamin B-6) 100 mg PO QDAY [facility] Last Admin: 04/11/19 10:09 Dose: 100 mg Documented by: Sodium Chloride (Sodium Chloride Flush Syringe 10 Ml) 10 ml IV BID [facility] Last Admin: 04/11/19 10:11 Dose: Not Given Documented by: Sodium Chloride (Sodium Chloride Flush Syringe 10 Ml) 10 ml IV PRN PRN PRN Reason: LINE FLUSH Thiamine HCl (Vitamin B-1) 100 mg PO DAILY [facility] Last Admin: 04/11/19 10:09 Dose: 100 mg Documented by: Physical Examination - Physical exam Narrative exam: left ankle - moderate swelling, skin intact, tender along lateral malleolus, + deformity, good capillary refill Eyes: PERRL ENT: Positive: clear oral mucosa Respiratory effort: normal Respiratory: bilateral: CTA Rhythm: regular Heart Sounds: Positive: S1 & S2 General gastrointestinal: Positive: soft, non-tender, non-distended, normal bowel sounds Integumentary: clear, warm, dry Neurologic: Positive: CNII-XII intact, moves all extremities, gait normal. Negative: focal deficits - Cervical Spine Neck pain: none Tenderness with palpation: none Full ROM: yes ROM: flexion: normal ROM: extension: normal ROM: rotation right: normal ROM: rotation left: normal ROM: lateral flexion right: normal ROM: lateral flexion left: normal - Lumbar Spine Back pain: none Tenderness with palpation: none Appearance: normal Full ROM: yes ROM: flexion: normal ROM: extension: normal ROM: rotation right: normal ROM: rotation left: normal ROM: lateral flexion right: normal ROM: lateral flexion left: normal Assessment and Plan displace left lateral malleolus fracture with instability recommend ORIF left ankle
[2019-04-11] MEDS ORDERED: ceFAZolin/Water 2 GM/20 ML 2 GM/20 ML SYRINGE IV ONE (12:03)
[2019-04-11] MEDS ORDERED: LIDOCAINE MPF (2%) 20 MG/1 ML VIAL 5 ML ONE (12:04)
[2019-04-11] MEDS ORDERED: SODIUM CHLORIDE 0.9% 1000 ML 1,000 ML ONE ×2 (12:05→13:36)
[2019-04-11] MEDS ORDERED: SODIUM CHLORIDE 0.9% IRR 1,500 ML BOTTLE IR ONE (12:13)
[2019-04-11] MEDS ORDERED: BUPIVACAINE/PF (0.5%) 5 MG/1 ML 30 ML VIAL INFILTRATI ONE ×2 (12:24→13:01)
[2019-04-11] MEDS ORDERED: MORPHINE 2 MG/1 ML INJ IV PRN (12:31)
[2019-04-11] MEDS ORDERED: MORPHINE 4 MG/1 ML INJ IV PRN (12:31)
--- NOTE | 2019-04-11 12:35 | Procedure Note ---
Date of procedure: 04/11/19 Pre-op diagnosis: Displaced left lateral malleolus fracture Post-op diagnosis: same Procedure: Open Reduction and internal fixation left distal fibula Procedure The patient was brought to the orifice in the OR table in supine position following the induction and intubation by anesthesia patient's left lower extremity was prepped and draped in the usual sterile manner. Time-out procedure was done to identify the patient and the correct operative site. The leg was then exsanguinated followed by inflation of the pneumatic tourniquet 300 mmHg. A lateral incision was made along the distal fibula this was then taken down sharply through skin and subcutaneous fracture site was identified and was manipulated into a more reduced position and held by bone clamps the patient also was noted to have a small fracture anteriorly that was stabilized with a smooth K wire next a 7 hole 3.5 plate was applied to the lateral border of the fibula this was then secured with screws of various lengths post reduction views were obtained showing good reduction of the fracture and placement of the hardware Was copiously irrigated and was closed in a standard routine fashionsuture device was placed on the skin next routine. Dressings were applied as well as a well-padded posterior mold the patient was extubated and was taken to postanesthesia recovery in a stable condition Anesthesia: ROCKY Surgeon: AIDAN ALCANTAR Transfer And Pumphouse Operator: TERRELL QUIROS Estimated blood loss: minimal Pathology: none Condition: stable Disposition: PACU
[2019-04-11] MEDS ORDERED: KETOROLAC 30 MG/1 ML INJ ONE (12:49)
[2019-04-11] MEDS ORDERED: ONDANSETRON 4 MG/2 ML INJ ONE (12:49)
--- NOTE | 2019-04-11 13:54 | Progress Note ---
Assessment and Plan - Patient Problems (1) Poisoning, antifreeze Current Visit: Yes Status: Acute Qualifiers: Injury intent: intentional self-harm Plan to address problem: Can continue IV Fomipazole, vitamin B1, vitamin B6 as per poison control recommendations (2) Alcohol intoxication Current Visit: Yes Status: Acute Qualifiers: Complication of substance-induced condition: uncomplicated Qualified Code(s): F10.920 - Alcohol use, unspecified with intoxication, uncomplicated Plan to address problem: Alcohol cessation, thiamine, folic acid, multivitamin. Outpatient AA follow-up. Supportive care, behavior change counseling +15 minutes (3) Colon cancer Current Visit: Yes Status: Acute Qualifiers: Colon location: unspecified part of colon Qualified Code(s): C18.9 - Malignant neoplasm of colon, unspecified Plan to address problem: Supportive care, outpatient oncology follow-up, continue current therapy. (4) History of CVA with residual deficit Current Visit: Yes Status: Acute Plan to address problem: Supportive care (5) Suicide attempt Current Visit: Yes Status: Acute Plan to address problem: Psychiatry consulted consent to new current care, [address] (6) DVT prophylaxis Current Visit: Yes Status: Acute Plan to address problem: SCD to bilateral lower extremities while in bed, prophylactic heparin. History Interval history: 53-year-old male hospital day 3 with alcohol intoxication, suicide attempt via ingestion of ethylene glycol, colon cancer, left ankle fracture. Patient is more alert today. Patient resting comfortably in bed. Patient denies fever, chills, chest pain, palpitations, nausea vomiting diarrhea, productive cough, skin rash, recent ill contacts. No reported nursing events overnight. Patient complains of continued left ankle pain. Lab and imaging studies reviewed. Orthopedic surgery service consulted and pending surgical intervention. Hospitalist Physical - Constitutional Vitals: Temp Pulse Resp BP Pulse Ox 98.3 F 68 14 146/85 98 04/11/19 12:55 04/11/19 13:40 04/11/19 13:40 04/11/19 13:40 04/11/19 13:40 General appearance: Present: no acute distress, well-nourished - EENT Eyes: Present: PERRL ENT: hearing intact - Neck Neck: Present: supple - Respiratory Respiratory: bilateral: diminished - Cardiovascular Rhythm: regular Heart Sounds: Present: S1 & S2 - Extremities Extremity abnormal: edema, other (LLE) Peripheral Pulses: within normal limits - Abdominal General gastrointestinal: soft, non-tender, non-distended - Integumentary Integumentary: Present: clear, warm, dry - Psychiatric Psychiatric: appropriate mood/affect, cooperative - Neurologic Neurologic: CNII-XII intact Results - Labs CBC & Chem 7: 04/10/19 03:36 04/11/19 09:25 Labs: Laboratory Last Values WBC 8.3 K/mm3 (4.5-11.0) 04/10/19 03:36 RBC 3.88 M/mm3 (3.65-5.03) 04/10/19 03:36 Hgb 9.2 gm/dl (11.8-15.2) L 04/10/19 03:36 Hct 27.9 % (35.5-45.6) L D 04/10/19 03:36 MCV 72 fl (84-94) L 04/10/19 03:36 MCH 24 pg (28-32) L 04/10/19 03:36 MCHC 33 % (32-34) 04/10/19 03:36 RDW 24.0 % (13.2-15.2) H 04/10/19 03:36 Plt Count 362 K/mm3 (140-440) 04/10/19 03:36 Lymph % (Auto) 19.2 % (13.4-35.0) 04/10/19 03:36 [place] % (Auto) 7.9 % (0.0-7.3) H 04/10/19 03:36 Eos % (Auto) 1.9 % (0.0-4.3) 04/10/19 03:36 Baso % (Auto) 0.7 % (0.0-1.8) 04/10/19 03:36 Lymph # 1.6 K/mm3 (1.2-5.4) 04/10/19 03:36 [place] # 0.7 K/mm3 (0.0-0.8) 04/10/19 03:36 Eos # 0.2 K/mm3 (0.0-0.4) 04/10/19 03:36 Baso # 0.1 K/mm3 (0.0-0.1) 04/10/19 03:36 Seg Neutrophils % 70.3 % (40.0-70.0) H 04/10/19 03:36 Seg Neutrophils # 5.8 K/mm3 (1.8-7.7) 04/10/19 03:36 PT 14.1 Sec. (12.2-14.9) 04/10/19 03:36 INR 1.08 (0.87-1.13) 04/10/19 03:36 APTT 27.9 Sec. (24.2-36.6) 04/10/19 03:36 Sodium 141 mmol/L (137-145) 04/11/19 09:25 Potassium 3.8 mmol/L (3.6-5.0) 04/11/19 09:25 Chloride 105.8 mmol/L (98-107) 04/11/19 09:25 Carbon Dioxide 22 mmol/L (22-30) 04/11/19 09:25 Anion Gap 17 mmol/L 04/11/19 09:25 BUN 7 mg/dL (9-20) L 04/11/19 09:25 Creatinine 0.8 mg/dL (0.8-1.5) 04/11/19 09:25 Estimated GFR > 60 ml/min 04/11/19 09:25 BUN/Creatinine Ratio 9 % 04/11/19 09:25 Glucose 94 mg/dL (75-100) 04/11/19 09:25 Osmolality 389 Mosm/kg 04/09/19 07:09 Calcium 8.6 mg/dL (8.4-10.2) 04/11/19 09:25 Magnesium 2.50 mg/dL (1.7-2.3) H 04/09/19 00:28 Total Bilirubin 0.30 mg/dL (0.1-1.2) 04/09/19 07:09 AST 17 units/L (5-40) 04/09/19 07:09 ALT 10 units/L (7-56) 04/09/19 07:09 Alkaline Phosphatase 53 units/L (35-129) 04/09/19 07:09 Total Protein 8.4 g/dL (6.3-8.2) H 04/09/19 07:09 Albumin 4.6 g/dL (3.9-5) 04/09/19 07:09 Albumin/Globulin Ratio 1.2 % 04/09/19 07:09 Urine Color Colorless (Yellow) 04/09/19 00:30 Urine Turbidity Clear (Clear) 04/09/19 00:30 Urine pH 5.0 (5.0-7.0) 04/09/19 00:30 Ur Specific [place] 1.010 (1.003-1.030) 04/09/19 00:30 Urine Protein <15 mg/dl mg/dL (Negative) 04/09/19 00:30 Urine Glucose (UA) Neg mg/dL (Negative) 04/09/19 00:30 Urine Ketones Tr mg/dL (Negative) 04/09/19 00:30 Urine Blood Neg (Negative) 04/09/19 00:30 Urine Nitrite Neg (Negative) 04/09/19 00:30 Urine Bilirubin Neg (Negative) 04/09/19 00:30 Urine Urobilinogen < 2.0 mg/dL (<2.0) 04/09/19 00:30 Ur Leukocyte Esterase Neg (Negative) 04/09/19 00:30 Urine WBC (Auto) < 1.0 /HPF (0.0-6.0) 04/09/19 00:30 Urine RBC (Auto) 2.0 /HPF (0.0-6.0) 04/09/19 00:30 U Epithel Cells (Auto) < 1.0 /HPF (0-13.0) 04/09/19 00:30 Salicylates 0.4 mg/dL (2.8-20.0) L 04/09/19 00:28 Urine Opiates Screen Presumptive negative 04/09/19 00:30 Urine Methadone Screen Presumptive negative 04/09/19 00:30 Acetaminophen < 5.0 ug/mL (10.0-30.0) L 04/09/19 00:28 Ur Barbiturates Screen Presumptive negative 04/09/19 00:30 Ur Phencyclidine Scrn Presumptive negative 04/09/19 00:30 Ur Amphetamines Screen Presumptive negative 04/09/19 00:30 U Benzodiazepines Scrn Presumptive negative 04/09/19 00:30 Urine Cocaine Screen Presumptive negative 04/09/19 00:30 U Marijuana (THC) Screen Presumptive negative 04/09/19 00:30 Drugs of Abuse Note Disclamer 04/09/19 00:30 Plasma/Serum Alcohol 0.13 % (0-0.07) H 04/09/19 00:28 Active Medications - Current Medications Current Medications: Generic Name Dose Route Start Last Admin Trade Name Freq PRN Reason Stop Dose Admin Heparin Sodium (Porcine) 5,000 unit 04/09/19 06:00 04/11/19 05:14 Heparin SUB-Q 5,000 unit Q8HR MARILEE Administration Hydromorphone HCl 0.5 mg 04/11/19 10:28 Dilaudid IV 04/11/19 23:59 Q10MIN PRN Pain , Severe (7-10) Sodium Chloride 1,000 mls @ 75 mls/hr 04/09/19 03:15 04/11/19 05:37 Nacl 0.9% 1000 Ml IV 75 mls/hr DIRECT MARILEE Administration Magnesium Hydroxide 30 ml 04/09/19 03:04 Milk Of Magnesia PO Q4H PRN Constipation Morphine Sulfate 4 mg 04/11/19 12:31 Morphine IV Q4H PRN Pain , Severe (7-10) Morphine Sulfate 2 mg 04/11/19 12:31 Morphine IV Q4H PRN Pain, Moderate (4-6) Ondansetron HCl 4 mg 04/09/19 03:04 Zofran IV Q8H PRN Nausea And Vomiting Ondansetron HCl 4 mg 04/11/19 10:28 Zofran IV ONCE PRN Nausea And Vomiting Ondansetron HCl 4 mg 04/11/19 12:31 Zofran IV Q8H PRN Nausea And Vomiting Oxycodone/Acetaminophen 1 tab 04/09/19 17:30 04/11/19 08:31 Percocet 5/325 PO 1 tab Q6H PRN Administration Pain, Moderate (4-6) Pyridoxine HCl 100 mg 04/09/19 10:00 04/11/19 10:09 Vitamin B-6 PO 100 mg QDAY MARILEE Administration Sodium Chloride 10 ml 04/09/19 10:00 04/11/19 10:11 Sodium Chloride Flush Syringe 10 Ml IV Not Given BID MARILEE Sodium Chloride 10 ml 04/09/19 03:04 Sodium Chloride Flush Syringe 10 Ml IV PRN PRN LINE FLUSH Sodium Chloride 10 ml 04/11/19 13:00 Sodium Chloride Flush Syringe 10 Ml IV 04/12/19 12:59 PRN PRN PRN Thiamine HCl 100 mg 04/09/19 10:00 04/11/19 10:09 Vitamin B-1 PO 100 mg DAILY MARILEE Administration Nutrition/Malnutrition Assess - Dietary Evaluation Nutrition/Malnutrition Findings: Nutrition Notes Start: 04/10/19 11:19 Freq: Status: Active Protocol: Document 04/10/19 11:19 RS (Rec: 04/10/19 11:37 RS [id number]) Co-Sign 04/10/19 11:19 LP Nutrition Notes Need for Assessment generated from: director video Initial or Follow up Assessment Other Pertinent Diagnosis Stage II colon cancer, hx of seizures, hx of CVA, suicide attempt Current Diet Cardiac diet Labs/Tests reviewed Pertinent Medications reviewed Height 5 ft 8 in Weight 72.57 kg [place] Body Weight (kg) 70.00 BMI 24.3 Intake Prior to Admission Good Weight change and time frame 30lb wt loss in 6 months Weight Status Appropriate Subjective/Other Information RN consult for MST, skin risk assessment. Pt appeared to be weak and had low energy levels . Pt reports eating 100% of breakfast meal tray. Pt reports when he was recieving chemotherapy that his appetite was nonexistent and caused him to lose 30lb in 6 months. Pt states his appetite has notably improved as of recent and is able to tolerate most meals. Pt has Ishan score of 15 but no noted wounds or pressure ulcers present. No noted muscle wasting or body fat depletion. Burn Absent Trauma Absent GI Symptoms None Food Allergy No Current % PO Good (75-100%) Minimum of two criteria No Interpretation of Weight Loss (severe) >10% in 6 months #1 Nutrition Diagnosis Inadequate oral intake Etiology dx of stage II colon cancer, s /p radiation As Evidenced by Signs and Symptoms pt losing 30 lb in past 6 months Is patient on ventilator? No Is Patient Ambulatory and/or Out of Bed No REE-([place]-St. Jeor-confined to bed) 0879.548 Calculation Used for Recommendations [place]-St Jeor Additional Notes PRO needs (0.8-1g/kg): 58-73g/ day Fluid needs: 1mL/kcal Nutrition Intervention Change Diet Order: Continue diet Goal #1 Pt will meet 75% of kcal/PRO needs via PO intake Anticipated Discharge Needs: Cardiac diet Follow-Up By: 04/13/19 Additional Comments F/U for stable PO intakes
--- NOTE | 2019-04-11 14:28 | XRay Report ---
INTRAOPERATIVE FLUOROSCOPY: LEFT ANKLE 2 VIEWS INDICATION / CLINICAL INFORMATION: IMAGES FOR ORIF LT ANKLE SURGERY. TECHNIQUE: Intraoperative spot images were obtained during the procedure. FINDINGS: Distal fibular compression plate and screws traverse the distal fibular fracture in expected position . Fluoroscopy Time: 0.1 minutes. Fluoroscopy Images: 2. Signer Name: Lavell Marroquin MD Signed: 04/11/2019 2:24 PM Workstation Name: [id number]
[2019-04-12] MEDS: HEPARIN 5,000 UNIT/1 ML VIAL SUB-Q SCH ×3 (05:20→22:28)
[2019-04-12] MEDS: oxyCODONE /ACETAMINOPHEN 5-325MG TAB PO PRN ×2 (07:55→22:27)
[2019-04-12] MEDS: PYRIDOXINE 50 MG TAB PO SCH (09:29)
[2019-04-12] MEDS: THIAMINE 100 MG TAB PO SCH (09:29)
[2019-04-12] MEDS: SODIUM CHLORIDE 0.9% 1000 ML 1,000 ML IV SCH (11:25)
[2019-04-12 11:52] LABS: BUN/Creatinine Ratio 9; Blood Urea Nitrogen 7 mg/dL (9-20); Hemolysis Index 3
--- NOTE | 2019-04-12 11:53 | Consultation ---
History of Present Illness - Reason for Consult Consult date: 04/12/19 Reason for consult: SI - Chief Complaint Chief complaint: Drug overdose - History of Present Psychiatric Illness The medical chart reviewed and the patient's progress discussed with the nursing staff. The sitter at bedside states the patient has been calm, and cooperative and has had no behavioral issues for him. Adriel Rivers is a 53 y/o male patient was was admitted to the ER for suicide attempt by drinking antifreeze. During my interview this morning, the patient is lying in bed. Awake. Dressed appropriately. He makes good eye contact. His affect is restricted. He's calm and cooperative. He is a/o x 3. Sitter at bedside. The patient says he's here because he "broke his ankle." When asked about drinking antifreeze, he says "they said I tried to take some antifreeze but I don't remember that. I don't know why I would do that." He denies any SI/HI or passive thoughts. Mr. Rivers states he has never had a suicide attempt or thought before. He says "since I was diagnosed with stage II cancer about six months ago I've been a little depressed. But I wouldn't go that far." He denies any elicit drug use or nicotine use. He says he "had a seizure about two weeks ago." The patient says he "drinks about one beer a day but used to drink vodka." He says "that was a long time ago." Mr. Rivers denies any psychiatric diagnoses or treatment in the past. He denies hallucinations of any kind. PAST PSYCHIATRIC HISTORY: Diagnoses: Denies Suicide attempts or Self-harm behavior: denies Prior psychiatric hospitalizations: denies Substance Abuse history: Alcohol Previous psychiatric medications tried: Denies Outpatient treatment: no REVIEW OF SYSTEMS Constitutional: Negative for weight loss ENT: Negative for stridor Respiratory: Negative for cough All other systems reviewed and are negative PAST MEDICAL HISTORY: Stage II colon cancer, stroke, SZ two weeks ago Family Psychiatric History None reported or documented SOCIAL HISTORY Marital Status: Living Arrangements: Sister Employment Status: Unemployed Access to guns/weapons: Denies Education: 2 years of College History of Abuse: Denies Legal History: Denies MSE Appearance: In bed. Appropriate clothing. Good eye contact. Behavior: calm and cooperative Mood: "a little depressed" Affect: Restricted Thought Process: Goal directed Speech: Normal tone and pace Thought Content Harmfulness Denies SI/HI Hallucinations: patient denies Delusions: none elicited Consciousness: Alert Cognition/Memory: Fair Insight/Judgment: Good Assessment: Major Depressive Order w/o Psychotic Features Substance-induced Mood Disorder Treatment Plan No medications prescribed or ordered at this time Medical: Per primary team Disposition: The patient does not meet requirement for acute inpatient psychiatric hospitalization. May discharge home once medically clear. Follow up with PCP in 7 to 10 days of discharge. Attend AA meetings. Establish psychiatrist for therapy and possible antidepressant. No alcohol use Will sign off. Please call with any questions or concerns. Thank you for this consult. Medications and Allergies Allergies Allergy/AdvReac Type Severity Reaction Status Date / Time No Known Allergies Allergy Unverified 04/09/19 00:36 Active Meds: Active Medications Heparin Sodium (Porcine) (Heparin) 5,000 unit SUB-Q Q8HR MARILEE Last Admin: 04/12/19 05:20 Dose: 5,000 unit Documented by: Sodium Chloride (Nacl 0.9% 1000 Ml) 1,000 mls @ 75 mls/hr IV DIRECT MARILEE Last Admin: 04/12/19 11:25 Dose: 75 mls/hr Documented by: Fomepizole 1,000 mg/ Sodium (Chloride) 101 mls @ 200 mls/hr IV ONCE ONE Stop: 04/12/19 12:30 Fomepizole 1,000 mg/ Sodium (Chloride) 101 mls @ 200 mls/hr IV Q12HR MARILEE Magnesium Hydroxide (Milk Of Magnesia) 30 ml PO Q4H PRN PRN Reason: Constipation Morphine Sulfate (Morphine) 4 mg IV Q4H PRN PRN Reason: Pain , Severe (7-10) Morphine Sulfate (Morphine) 2 mg IV Q4H PRN PRN Reason: Pain, Moderate (4-6) Ondansetron HCl (Zofran) 4 mg IV Q8H PRN PRN Reason: Nausea And Vomiting Oxycodone/Acetaminophen (Percocet 5/325) 1 tab PO Q6H PRN PRN Reason: Pain, Moderate (4-6) Last Admin: 04/12/19 07:55 Dose: 1 tab Documented by: Pyridoxine HCl (Vitamin B-6) 100 mg PO QDAY MARILEE Last Admin: 04/12/19 09:29 Dose: 100 mg Documented by: Sodium Chloride (Sodium Chloride Flush Syringe 10 Ml) 10 ml IV BID [facility] Last Admin: 04/12/19 09:29 Dose: 10 ml Documented by: Sodium Chloride (Sodium Chloride Flush Syringe 10 Ml) 10 ml IV PRN PRN PRN Reason: LINE FLUSH Sodium Chloride (Sodium Chloride Flush Syringe 10 Ml) 10 ml IV PRN PRN PRN Reason: PRN Stop: 04/12/19 12:59 Thiamine HCl (Vitamin B-1) 100 mg PO DAILY [facility] Last Admin: 04/12/19 09:29 Dose: 100 mg Documented by: Mental Status Exam - Vital signs Last Vital Signs Temp 98.3 F 04/12/19 08:00 Pulse 61 04/12/19 09:00 Resp 12 04/12/19 09:00 BP 120/74 04/12/19 09:00 Pulse Ox 97 04/12/19 09:06 Results Result Diagrams: 04/10/19 03:36 04/12/19 10:53 All other labs normal.
[2019-04-12] MEDS ORDERED: FOMEPIZOLEV IV ONE (12:00)
[2019-04-12] MEDS ORDERED: SODIUM CHLORIDE 0.9% IV ONE (12:00)
--- NOTE | 2019-04-12 15:06 | Progress Note ---
Assessment and Plan - Patient Problems (1) Poisoning, antifreeze Current Visit: Yes Status: Acute Qualifiers: Injury intent: intentional self-harm Plan to address problem: Can continue IV Fomipazole. Discontinue when ethylene glycol level is below 20, vitamin B1, vitamin B6 as per poison control recommendations (2) Alcohol intoxication Current Visit: Yes Status: Resolved Qualifiers: Complication of substance-induced condition: uncomplicated Qualified Code(s): F10.920 - Alcohol use, unspecified with intoxication, uncomplicated Plan to address problem: Alcohol cessation, thiamine, folic acid, multivitamin. Outpatient AA follow-up. Supportive care, behavior change counseling +15 minutes (3) Colon cancer Current Visit: Yes Status: Acute Qualifiers: Colon location: unspecified part of colon Qualified Code(s): C18.9 - Malignant neoplasm of colon, unspecified Plan to address problem: Supportive care, outpatient oncology follow-up, continue current therapy. (4) History of CVA with residual deficit Current Visit: Yes Status: Acute Plan to address problem: Supportive care (5) Suicide attempt Current Visit: Yes Status: Acute Plan to address problem: Psychiatry consulted consent to new current care, [address] (6) DVT prophylaxis Current Visit: Yes Status: Acute Plan to address problem: SCD to bilateral lower extremities while in bed, prophylactic heparin. History Interval history: 53-year-old male hospital day 4 with alcohol intoxication, suicide attempt via ingestion of ethylene glycol, colon cancer, left ankle fracture S/P surgical intervention. Patient is more alert today. Patient resting comfortably in bed. Patient denies fever, chills, chest pain, palpitations, nausea vomiting diarrhea, productive cough, skin rash, recent ill contacts. No reported nursing events overnight. Patient complains of continued left ankle pain. Lab and imaging studies reviewed. Awaiting Ethylene Glycol level. July D/C Fomepizole when level is below 20. Psychiatry consulted. [address] Hospitalist Physical - Constitutional Vitals: Temp Pulse Resp BP Pulse Ox 98.0 F 66 14 132/77 100 04/12/19 12:00 04/12/19 12:00 04/12/19 12:00 04/12/19 12:00 04/12/19 12:00 General appearance: Present: no acute distress, well-nourished - EENT Eyes: Present: PERRL ENT: hearing intact - Neck Neck: Present: supple - Respiratory Respiratory: bilateral: CTA - Cardiovascular Rhythm: regular Heart Sounds: Present: S1 & S2 - Extremities Extremity abnormal: edema - Abdominal General gastrointestinal: soft, non-tender, non-distended - Integumentary Integumentary: Present: clear, warm, dry - Psychiatric Psychiatric: appropriate mood/affect, cooperative - Neurologic Neurologic: CNII-XII intact Results - Labs CBC & Chem 7: 04/10/19 03:36 04/12/19 10:53 Labs: Laboratory Last Values WBC 8.3 K/mm3 (4.5-11.0) 04/10/19 03:36 RBC 3.88 M/mm3 (3.65-5.03) 04/10/19 03:36 Hgb 9.2 gm/dl (11.8-15.2) L 04/10/19 03:36 Hct 27.9 % (35.5-45.6) L D 04/10/19 03:36 MCV 72 fl (84-94) L 04/10/19 03:36 MCH 24 pg (28-32) L 04/10/19 03:36 MCHC 33 % (32-34) 04/10/19 03:36 RDW 24.0 % (13.2-15.2) H 04/10/19 03:36 Plt Count 362 K/mm3 (140-440) 04/10/19 03:36 Lymph % (Auto) 19.2 % (13.4-35.0) 04/10/19 03:36 [place] % (Auto) 7.9 % (0.0-7.3) H 04/10/19 03:36 Eos % (Auto) 1.9 % (0.0-4.3) 04/10/19 03:36 Baso % (Auto) 0.7 % (0.0-1.8) 04/10/19 03:36 Lymph # 1.6 K/mm3 (1.2-5.4) 04/10/19 03:36 [place] # 0.7 K/mm3 (0.0-0.8) 04/10/19 03:36 Eos # 0.2 K/mm3 (0.0-0.4) 04/10/19 03:36 Baso # 0.1 K/mm3 (0.0-0.1) 04/10/19 03:36 Seg Neutrophils % 70.3 % (40.0-70.0) H 04/10/19 03:36 Seg Neutrophils # 5.8 K/mm3 (1.8-7.7) 04/10/19 03:36 PT 14.1 Sec. (12.2-14.9) 04/10/19 03:36 INR 1.08 (0.87-1.13) 04/10/19 03:36 APTT 27.9 Sec. (24.2-36.6) 04/10/19 03:36 Sodium 140 mmol/L (137-145) 04/12/19 10:53 Potassium 4.0 mmol/L (3.6-5.0) 04/12/19 10:53 Chloride 104.6 mmol/L (98-107) 04/12/19 10:53 Carbon Dioxide 23 mmol/L (22-30) 04/12/19 10:53 Anion Gap 16 mmol/L 04/12/19 10:53 BUN 7 mg/dL (9-20) L 04/12/19 10:53 Creatinine 0.8 mg/dL (0.8-1.5) 04/12/19 10:53 Estimated GFR > 60 ml/min 04/12/19 10:53 BUN/Creatinine Ratio 9 % 04/12/19 10:53 Glucose 127 mg/dL (75-100) H 04/12/19 10:53 Osmolality 284 Mosm/kg 04/12/19 10:53 Calcium 9.0 mg/dL (8.4-10.2) 04/12/19 10:53 Magnesium 2.50 mg/dL (1.7-2.3) H 04/09/19 00:28 Total Bilirubin 0.30 mg/dL (0.1-1.2) 04/09/19 07:09 AST 17 units/L (5-40) 04/09/19 07:09 ALT 10 units/L (7-56) 04/09/19 07:09 Alkaline Phosphatase 53 units/L (35-129) 04/09/19 07:09 Total Protein 8.4 g/dL (6.3-8.2) H 04/09/19 07:09 Albumin 4.6 g/dL (3.9-5) 04/09/19 07:09 Albumin/Globulin Ratio 1.2 % 04/09/19 07:09 Urine Color Colorless (Yellow) 04/09/19 00:30 Urine Turbidity Clear (Clear) 04/09/19 00:30 Urine pH 5.0 (5.0-7.0) 04/09/19 00:30 Ur Specific [place] 1.010 (1.003-1.030) 04/09/19 00:30 Urine Protein <15 mg/dl mg/dL (Negative) 04/09/19 00:30 Urine Glucose (UA) Neg mg/dL (Negative) 04/09/19 00:30 Urine Ketones Tr mg/dL (Negative) 04/09/19 00:30 Urine Blood Neg (Negative) 04/09/19 00:30 Urine Nitrite Neg (Negative) 04/09/19 00:30 Urine Bilirubin Neg (Negative) 04/09/19 00:30 Urine Urobilinogen < 2.0 mg/dL (<2.0) 04/09/19 00:30 Ur Leukocyte Esterase Neg (Negative) 04/09/19 00:30 Urine WBC (Auto) < 1.0 /HPF (0.0-6.0) 04/09/19 00:30 Urine RBC (Auto) 2.0 /HPF (0.0-6.0) 04/09/19 00:30 U Epithel Cells (Auto) < 1.0 /HPF (0-13.0) 04/09/19 00:30 Salicylates 0.4 mg/dL (2.8-20.0) L 04/09/19 00:28 Urine Opiates Screen Presumptive negative 04/09/19 00:30 Urine Methadone Screen Presumptive negative 04/09/19 00:30 Acetaminophen < 5.0 ug/mL (10.0-30.0) L 04/09/19 00:28 Ur Barbiturates Screen Presumptive negative 04/09/19 00:30 Ur Phencyclidine Scrn Presumptive negative 04/09/19 00:30 Ur Amphetamines Screen Presumptive negative 04/09/19 00:30 U Benzodiazepines Scrn Presumptive negative 04/09/19 00:30 Urine Cocaine Screen Presumptive negative 04/09/19 00:30 U Marijuana (THC) Screen Presumptive negative 04/09/19 00:30 Drugs of Abuse Note Disclamer 04/09/19 00:30 Ethylene Glycol 4340.4 mcg/mL (<10.0) H* 04/09/19 00:36 Plasma/Serum Alcohol 0.13 % (0-0.07) H 04/09/19 00:28 Active Medications - Current Medications Current Medications: Generic Name Dose Route Start Last Admin Trade Name Freq PRN Reason Stop Dose Admin Heparin Sodium (Porcine) 5,000 unit 04/09/19 06:00 04/12/19 14:07 Heparin SUB-Q 5,000 unit Q8HR MARILEE Administration Sodium Chloride 1,000 mls @ 75 mls/hr 04/09/19 03:15 04/12/19 11:25 Nacl 0.9% 1000 Ml IV 75 mls/hr DIRECT MARILEE Administration Fomepizole 1,000 mg/ Sodium 101 mls @ 200 mls/hr 04/13/19 10:00 Chloride IV Q12HR MARIELE Magnesium Hydroxide 30 ml 04/09/19 03:04 Milk Of Magnesia PO Q4H PRN Constipation Morphine Sulfate 4 mg 04/11/19 12:31 Morphine IV Q4H PRN Pain , Severe (7-10) Morphine Sulfate 2 mg 04/11/19 12:31 Morphine IV Q4H PRN Pain, Moderate (4-6) Ondansetron HCl 4 mg 04/11/19 12:31 Zofran IV Q8H PRN Nausea And Vomiting Oxycodone/Acetaminophen 1 tab 04/09/19 17:30 04/12/19 07:55 Percocet 5/325 PO 1 tab Q6H PRN Administration Pain, Moderate (4-6) Pyridoxine HCl 100 mg 04/09/19 10:00 04/12/19 09:29 Vitamin B-6 PO 100 mg QDAY MARILEE Administration Sodium Chloride 10 ml 04/09/19 10:00 04/12/19 09:29 Sodium Chloride Flush Syringe 10 Ml IV 10 ml BID MARILEE Administration Sodium Chloride 10 ml 04/09/19 03:04 Sodium Chloride Flush Syringe 10 Ml IV PRN PRN LINE FLUSH Thiamine HCl 100 mg 04/09/19 10:00 04/12/19 09:29 Vitamin B-1 PO 100 mg DAILY MARILEE Administration Nutrition/Malnutrition Assess - Dietary Evaluation Nutrition/Malnutrition Findings: Nutrition Notes Start: 04/10/19 11:19 Freq: Status: Active Protocol: Document 04/10/19 11:19 RS (Rec: 04/10/19 11:37 RS [id number]) Co-Sign 04/10/19 11:19 LP Nutrition Notes Need for Assessment generated from: platemaker Initial or Follow up Assessment Other Pertinent Diagnosis Stage II colon cancer, hx of seizures, hx of CVA, suicide attempt Current Diet Cardiac diet Labs/Tests reviewed Pertinent Medications reviewed Height 5 ft 8 in Weight 72.57 kg [place] Body Weight (kg) 70.00 BMI 24.3 Intake Prior to Admission Good Weight change and time frame 30lb wt loss in 6 months Weight Status Appropriate Subjective/Other Information RN consult for MST, skin risk assessment. Pt appeared to be weak and had low energy levels . Pt reports eating 100% of breakfast meal tray. Pt reports when he was recieving chemotherapy that his appetite was nonexistent and caused him to lose 30lb in 6 months. Pt states his appetite has notably improved as of recent and is able to tolerate most meals. Pt has Ishan score of 15 but no noted wounds or pressure ulcers present. No noted muscle wasting or body fat depletion. Burn Absent Trauma Absent GI Symptoms None Food Allergy No Current % PO Good (75-100%) Minimum of two criteria No Interpretation of Weight Loss (severe) >10% in 6 months #1 Nutrition Diagnosis Inadequate oral intake Etiology dx of stage II colon cancer, s /p radiation As Evidenced by Signs and Symptoms pt losing 30 lb in past 6 months Is patient on ventilator? No Is Patient Ambulatory and/or Out of Bed No REE-([facility]-confined to bed) 2053.542 Calculation Used for Recommendations [facility] Additional Notes PRO needs (0.8-1g/kg): 58-73g/ day Fluid needs: 1mL/kcal Nutrition Intervention Change Diet Order: Continue diet Goal #1 Pt will meet 75% of kcal/PRO needs via PO intake Anticipated Discharge Needs: Cardiac diet Follow-Up By: 04/13/19 Additional Comments F/U for stable PO intakes
[2019-04-13] MEDS: SODIUM CHLORIDE 0.9% 1000 ML 1,000 ML IV SCH (00:59)
[2019-04-13 04:57] LABS: Basophils # (Auto) 0.1 K/mm3 (0.0-0.1); Basophils % (Auto) 1.1 % (0.0-1.8); Eosinophils # (Auto) 0.3 K/mm3 (0.0-0.4); Eosinophils % (Auto) 4.3 % (0.0-4.3); Hematocrit 25.3 % (35.5-45.6); Hemoglobin 8.5 gm/dl (11.8-15.2); Lymphocytes # (Auto) 1.4 K/mm3 (1.2-5.4); Lymphocytes % (Auto) 22.7 % (13.4-35.0); Mean Corpuscular HGB Conc 34 % (32-34); Mean Corpuscular Volume 72 fl (84-94); Monocytes # (Auto) 0.6 K/mm3 (0.0-0.8); Platelet Count 316 K/mm3 (140-440); Red Blood Count 3.51 M/mm3 (3.65-5.03)
[2019-04-13 04:59] LABS: Red Cell Distribution Width 24.8 % (13.2-15.2)
[2019-04-13] MEDS: HEPARIN 5,000 UNIT/1 ML VIAL SUB-Q SCH ×2 (05:18→14:14)
[2019-04-13 05:19] LABS: Albumin 2.9 g/dL (3.9-5); BUN/Creatinine Ratio 11; Blood Urea Nitrogen 8 mg/dL (9-20); Calcium 7.9 mg/dL (8.4-10.2); Hemolysis Index 2
[2019-04-13 05:21] LABS: Alanine Aminotransferase < 5 units/L (7-56)
[2019-04-13] MEDS ORDERED: SODIUM CHLORIDE 0.9% IV SCH ×2 (10:00→14:00)
[2019-04-13] MEDS ORDERED: FOMEPIZOLEV IV SCH ×2 (10:00→14:00)
[2019-04-13] MEDS: oxyCODONE /ACETAMINOPHEN 5-325MG TAB PO PRN (10:20)
[2019-04-13] MEDS: THIAMINE 100 MG TAB PO SCH (10:20)
[2019-04-13] MEDS: PYRIDOXINE 50 MG TAB PO SCH (10:21)
--- NOTE | 2019-04-13 12:02 | Discharge Summary ---
Providers - Providers Date of Admission: 04/09/19 02:57 Attending physician: MECHE ROLDAN MD 04/09/19 14:31 Consult to Physician [CONS] Routine Comment: Consulting Provider: AIDAN ALCANTAR Physician Instructions: Reason For Exam: ankle fracture 04/10/19 18:28 psychiatry consult [Consult to Mental Health] [CONS] Routine Reason For Exam: Suicide attempt Place consult to:: Psychiatry Notified:: mental health assesor notified by phone 04/11/19 12:33 Physical Therapy Evaluation and Treat [CONS] Routine Comment: Reason For Exam: post op evaluation Weight bearing status?: Partial wt bearing Assistive devices?: Yes If so list: Walker Primary care physician: PARKING OFFICER Hospitalization Condition: Stable Hospital course: 53-year-old man who presented to the hospital after intentionally drinking antifreeze. He has a past medical history of stage II colon cancer which was diagnosed 6 months prior, a stroke 6 months ago with residual left-sided weakness and left visual deficits. Seizure disorder and noncompliance with his medications. The patient presented with suicidal ideation and suicidal attempts he was found outside intoxicated. He admitted to drinking 2 beers and about a cup and a half of antifreeze with his attempt to kill himself. - the patient had had recent and had been on IV chemotherapy surgical resection of his cancer q. monthly for the past 3 months and also takes oral chemotherapy medications. The patient was treated per poison control recommendations, he received fomepizole, IV fluids and vitamins. He denied a history of heavy drinking or daily drinking of alcohol - he was seen by psychiatry, suicidal ideation resolved. did not recommend any medications, but recommended outpatient follow-up. Preventative health counseling performed for 17 minutes Diagnosis Suicidal attempt Major depression without psychotic features Substance-induced mood disorder Acute toxic encephalopathy Antifreeze intoxication Disposition: DC-01 TO HOME OR SELFCARE Time spent for discharge: 35 minutes Core Measure Documentation - Palliative Care Palliative Care/ Comfort Measures: Not Applicable - Core Measures Any of the following diagnoses?: none Exam - Constitutional Vitals: Temp Pulse Resp BP Pulse Ox 98.7 F 91 H 13 122/87 99 04/13/19 08:00 04/13/19 10:00 04/13/19 10:00 04/13/19 10:00 04/13/19 10:00 General appearance: Present: no acute distress, well-nourished - EENT Eyes: Present: PERRL ENT: hearing intact, clear oral mucosa - Neck Neck: Present: supple, normal ROM - Respiratory Respiratory effort: normal Respiratory: bilateral: CTA - Cardiovascular Heart Sounds: Present: S1 & S2. Absent: rub, click - Extremities Extremities: pulses symmetrical, No edema Peripheral Pulses: within normal limits - Abdominal General gastrointestinal: Present: soft, non-tender, non-distended, normal bowel sounds Male genitourinary: Present: normal - Integumentary Integumentary: Present: clear, warm, dry - Musculoskeletal Musculoskeletal: gait normal, strength equal bilaterally - Psychiatric Psychiatric: appropriate mood/affect, intact judgment & insight - Neurologic Neurologic: CNII-XII intact, moves all extremities Plan Follow up with: PRIMARY CARE, [Primary Care Provider] - 7 Days Prescriptions: Folic Acid 1 mg PO DAILY #30 tablet Thiamine [Vitamin B-1] 100 mg PO DAILY #30 tablet Pyridoxine [Vitamin B-6 50MG TAB] 100 mg PO QDAY #60 tablet
[2019-04-13 18:20] VITALS: BP 136/86
== END 2019-04-13 18:35 | disposition home or self-care (01) | DRG 907 ==
LOC: ED 00:07 → IMCU 02:57
PROVIDERS: ADMIT Internal Medicine Geriatric Medicine; ATTEND Internal Medicine
PROC: 0QSK04Z Reposition Left Fibula with Internal Fixation Device, Open Approach (ICD-10-PCS; principal; 2019-04-11)
DX: T51.1X2A Toxic effect of methanol, intentional self-harm, initial encounter (principal); G92 Toxic encephalopathy; C18.9 Malignant neoplasm of colon, unspecified; I69.354 Hemiplegia and hemiparesis following cerebral infarction affecting left non-dominant side; T51.8X2A Toxic effect of other alcohols, intentional self-harm, initial encounter; F32.9 Major depressive disorder, single episode, unspecified; F15.94 Other stimulant use, unspecified with stimulant-induced mood disorder; G40.909 Epilepsy, unspecified, not intractable, without status epilepticus; F10.129 Alcohol abuse with intoxication, unspecified; Y90.9 Presence of alcohol in blood, level not specified; S82.62XA Displaced fracture of lateral malleolus of left fibula, initial encounter for closed fracture; X58.XXXA Exposure to other specified factors, initial encounter; Y93.89 Activity, other specified; Y92.89 Other specified places as the place of occurrence of the external cause; Y99.8 Other external cause status
CPT/HCPCS: 36415; 80048; 80053; 80307; 80320; 81001; 82693; 83735; 83930; 85025; 85610; 85730; 93005; 93010; G0378; C1713; G0480; J0690; J1170; J1451; J1644; J1885; J1953; J2270; J2405; J2704; J3411; J7030

== ENCOUNTER 2019-06-16 10:52 | Outpatient (CLI) | payer BC ==
--- NOTE | 2019-06-16 11:43 | XRay Report ---
LEFT ANKLE HISTORY: Follow-up fracture. COMPARISON: 04/11/2019 and 04/09/2019 TECHNIQUE: 3 views of the left ankle obtained. FINDINGS: Bones: Status post ORIF distal fibular fracture. Fracture lines are still visible. Alignment is sati sfactory. Joint spaces: Maintained. Soft tissues: Moderate medial and lateral soft tissue swelling. Additional findings: None. IMPRESSION: 1. Distal fibular fracture status post ORIF. Signer Name: Maxi Jaimes MD Signed: 06/16/2019 11:38 AM Workstation Name: [id number]
== END 2019-06-16 10:53 | disposition home or self-care (01) ==
LOC: XRAY 10:52
PROVIDERS: ATTEND Orthopaedic Surgery
DX: S82.62XD Displaced fracture of lateral malleolus of left fibula, subsequent encounter for closed fracture with routine healing (principal); X58.XXXD Exposure to other specified factors, subsequent encounter